=== PATIENT | female | born 1960 | race Caucasian/White ===

== ENCOUNTER 2019-10-18 23:22 | Emergency (ER) | payer OTHER, SELFPAY ==
[2019-10-18 23:33] VITALS: BP 133/95; PULSE 90; RESP 15; TEMP 36.9; O2SAT 98; BMI 22.1
--- NOTE | 2019-10-18 23:33 | ED.WOUNDLAC ---
HPI - Wound/Laceration General Chief Complaint: Wound/Laceration Stated Complaint: right forearm laceration Time Seen by Provider: 10/18/19 23:30 Source: patient Mode of arrival: Ambulatory Limitations: no limitations History of Present Illness HPI narrative: 59-year-old female here for evaluation of a cut to her right forearm. Patient's that occurred just prior to arrival. She was cleaning out some duct work she cut it on a piece of metal. She states that her last tetanus shot was in the past couple years. She did clean it out at home prior to arrival covered with a bandage. Review of Systems Constitutional Constitutional: Denies fever(s) Musculoskeletal Musculoskeletal: Denies tingling Integumentary/Breasts Comments: Cut to right forearm Neurologic Neurologic: Denies tingling and Denies paresthesias Hematologic/Lymphatic Hematologic/Lymphatic: Denies easy bleeding and Denies easy bruising Allergic/Immunologic Allergic/Immunologic: Denies urticaria Patient History Surgical History No pertinent past surgical history (Acute) Social History Smoking Status: Never smoker Exam Initial Vital Signs Initial Vital Signs: Vital Signs Temperature 98.4 F 10/18/19 23:33 Pulse Rate 90 10/18/19 23:33 Respiratory Rate 15 10/18/19 23:33 Blood Pressure 133/95 H 10/18/19 23:33 Pulse Oximetry 98 10/18/19 23:33 Const General: cooperative and comfortable Cardio Pulses: radial pulses present on the right Skin Other: Patient with a 5 cm laceration on the volar/ulnar aspect of the right forearm. No active bleeding. Neuro General: alert and awake Sensory Exam: no sensory deficits noted Extrem General: normal to inspection and capillary refill normal Psych Appearance: grossly normal and well kempt Procedures Laceration Repair Laceration 1: Site: upper extremity Side (If applicable): right Size (cm): 5 Description: linear Depth: simple, single layer Local Anesthetic: lidocaine 1% Amount of anesthesia used (mL): 4 Pre-repair: wound explored, irrigated extensively, deep structures intact and wound margins revised Skin layer closed with: nylon Size (cm): 4-0 Number of sutures: 6 Technique: simple, interrupted Course Orders Ordered: Discontinued Medications Bacitracin (Bacitracin) 1 applic TOP NOW ONE Stop: 10/19/19 00:05 Last Admin: 10/19/19 00:08 Dose: 1 applic Documented by: ELISEO Lidocaine HCl (Xylocaine 1% (Pf)) 4 ml INJ NOW ONE Stop: 10/18/19 23:34 Last Admin: 10/18/19 23:38 Dose: 4 ml Documented by: JATIN Vital Signs Vital signs: Vital Signs - 8 hr 10/18/19 23:33 Temperature 98.4 F Pulse Rate 90 Respiratory Rate 15 Blood Pressure 133/95 H Pulse Oximetry 98 MDM - Wound/Laceration MDM Narrative Medical decision making narrative: Neurovascularly intact. Closed as described above. No indication for antibiotics. Patient was given care instructions and return precautions. She expressed understanding and agreement with plan. Discharge Plan Departure Patient Disposition: Home Clinical Impression: Laceration Discharge Date/Time: 10/19/19 00:18 Instructions: DI for Laceration Repair Activity Restrictions/Additional Instructions: The stitches do need to be removed in 7-10 days. Tomorrow you can shower like normal. Just cover the stitches with a bandage like we discussed. Return to the emergency department for any new or worsening symptoms
[2019-10-18] MEDS: LIDOCAINE 1% (PF) 4 ML INJ (23:38)
[2019-10-19] MEDS: BACITRACIN OINT 0.9 GM PCKT 1 APPLIC TOP (00:08)
== END 2019-10-19 00:18 | disposition home or self-care (01) ==
PROVIDERS: Emergency Provider Emergency Medicine
DX: S51.811A Laceration without foreign body of right forearm, initial encounter (principal); W26.9XXA Contact with unspecified sharp object(s), initial encounter; Y93.E9 Activity, other interior property and clothing maintenance
CPT/HCPCS: 12002; 99283

== ENCOUNTER 2021-09-17 15:22 | Emergency (ER) | payer OTHER, SELFPAY ==
[2021-09-17 15:37] VITALS: BP 162/91; PULSE 103; RESP 17; TEMP 37.3; O2SAT 96; BMI 22.6
--- NOTE | 2021-09-17 15:46 | DI.RAD.S_ITS ---
PROCEDURE: XR KNEE RT 3V INDICATIONS: injury to right knee TECHNIQUE: 3 views of the knee were acquired. COMPARISON: None. FINDINGS: Bones: No fractures or dislocations. No suspicious bony lesions. Soft tissues: Mild joint effusion. No suspicious soft tissue calcifications. IMPRESSION: Mild effusion. No visualized acute fracture or dislocation. However, if clinical concern and/or pain persist, short interval imaging followup in 7-10 days is recommended, as occult injury cannot be definitively excluded. Dictated by: Venecia Birmingham M.D. on 09/17/2021 at 16:06 Approved by: Venecia Birmingham M.D. on 09/17/2021 at 16:06
--- NOTE | 2021-09-17 18:41 | ED.LOWEXIN ---
HPI - Extremity Injury (Lower) General Chief Complaint: Extremity Injury, Lower Stated Complaint: RT KNEE PAIN Time Seen by Provider: 09/17/21 18:36 Source: patient Mode of arrival: Wheelchair Limitations: no limitations History of Present Illness HPI Narrative: This is a 61-year-old female comes emergency department complaint of right knee pain. She states she had moved her knee laterally minute sort of hyper extended it. She states her kneecap seemed to pop off to the lateral side. It states duct there until she pushed it at moved back to the middle. She has had pain in her knee. She took ibuprofen which was helpful but is starting to wear off. She denies any numbness, tingling or weakness. She does have swelling. She has not had this happen before. She denies any other major injuries or issues today. She takes medication for ADHD and migraines. She denies any major surgeries. Her only allergy is latex. Related Data Home Medications Medication Instructions Recorded Confirmed dextroamphetamine-amphetamine 20 20 mg PO BID 09/17/21 09/17/21 mg tablet (Adderall) Allergies Allergy/AdvReac Type Severity Reaction Status Date / Time latex Allergy Verified 09/17/21 16:42 Review of Systems Review of Systems ROS Unobtainable: All systems reviewed & are unremarkable except as noted in HPI and below Patient History Surgical History No pertinent past surgical history Social History Smoking Status: Never smoker Smoking Status: Never smoker Substance Use Type: does not use Exam Narrative Exam Narrative: GENERAL: Alert and oriented x three, female in mild distress. HEENT: Head normocephalic, atraumatic, EOMI, pupils reactive, face symmetric, moist mucous membranes NECK: Supple, full range of motion CARDIOVASCULAR: Regular rate and rhythm without murmurs, rubs or gallops. RESPIRATORY: Breath sounds equal bilaterally, no wheezes rales or rhonchi. ABDOMEN: Soft, nontender. Normoactive bowel sounds all 4 quadrants. No guarding or rebound, rigidity, no mass EXTREMITIES: Normal range of motion, no clubbing. Patient does have some swelling of the right knee. She does not have any obvious laxity. Her patella is in place. She has 2+ dorsalis pedis. Normal sensation throughout. No obvious ecchymosis or skin changes. Neurovascularly intact. NEUROLOGICAL: Cranial nerves II through XII grossly intact. Moving all extremities SKIN: Warm, dry, no petechiae, no rashes or lesions. Initial Vital Signs Initial Vital Signs: Vital Signs Temperature 99.1 F 09/17/21 15:37 Pulse Rate 103 H 09/17/21 15:37 Respiratory Rate 17 09/17/21 15:37 Blood Pressure 162/91 H 09/17/21 15:37 Pulse Oximetry 96 09/17/21 15:37 Course Orders Ordered: ED Orders 09/17/21 15:46 XR knee RT 3V Stat Vital Signs Vital signs: Vital Signs - 8 hr 09/17/21 15:37 Temperature 99.1 F Pulse Rate 103 H Respiratory Rate 17 Blood Pressure 162/91 H Pulse Oximetry 96 MDM - Extremity Injury (Lower) Imaging Data Extremity x-ray #1: Radiologist's Impression: [address] [address] XRay Report Signed Patient: Dulce Lopez MR#: [id number] : 1960 Acct:[id number] Age/Sex: 61 / F Date of Service: 09/17/21 Loc: ED Accession Number: [id number] ?? Procedure: XR knee RT 3V Ordering Provider: Alaina Tapia D.O. PROCEDURE:? XR KNEE RT 3V ? INDICATIONS:? injury to right knee ? TECHNIQUE:? 3 views of the knee were acquired.? ? COMPARISON:? None. ? FINDINGS:? ? Bones:? No fractures or dislocations.? No suspicious bony lesions.? ? Soft tissues:? Mild joint effusion.? No suspicious soft tissue calcifications.? ? ? IMPRESSION:? Mild effusion.? No visualized acute fracture or dislocation. However, if clinical concern and/or pain persist, short interval imaging followup in 7-10 days is recommended, as occult injury cannot be definitively excluded. ? ? Dictated by: Venecia Birmingham M.D. on 09/17/2021 at 16:06 ? ? Approved by: Venecia Birmingham M.D. on 09/17/2021 at 16:06?? [facility] Narrative Medical decision making narrative: Patient likely had a patellar dislocation which relocated at home. Plan for joint mobilization. She has crutches with her. Weight-bearing as tolerated and follow-up with her physician. We discussed if she has recurrent episodes she would need follow-up with orthopedic surgery specifically. Patient plans to take some ibuprofen when she returns home she defers anything in the department. Discharge Plan Departure Patient Disposition: Home Clinical Impression: Effusion of knee Instructions: DI for Patellar Dislocation Activity Restrictions/Additional Instructions: Follow-up with your physician in the next week for recheck. Wear knee immobilizer for the next several days. You may remove it if your pain is resolved. Weightbear as tolerated. You may take ibuprofen up to 800 mg every 8 hours as needed for pain and/or Tylenol up to a 1000 mg every 8 hours as needed for pain. Splint Care: Keep splint clean and dry. Elevated affected body part to decrease swelling. OK to use ice pack on the affected body part. Use for 15-20 minutes each time, for 5-6x per day. If you develop worsening pain, numbness, tingling, discoloration of the affected body part, loosen the splint by loosening the BEKA wrap, and either see your doctor for an urgent re-assessment, or return to the Emergency Department. Return to the Emergency Department for any new or worsening symptoms. Prescriptions: No Action dextroamphetamine-amphetamine [Adderall] 20 mg Tablet 20 mg PO BID 0RF Rx Instructions: administer doses at least 4-6 hours apart
[2021-09-17 20:00] VITALS: BP 135/80; PULSE 68; RESP 20; O2SAT 99
== END 2021-09-17 18:55 | disposition home or self-care (01) ==
PROVIDERS: Emergency Provider Emergency Medicine
DX: M25.461 Effusion, right knee (principal)
CPT/HCPCS: 73562; 99282; 99283

== ENCOUNTER 2022-12-06 10:45 | Emergency (ER) | payer OTHER, SELFPAY ==
[2022-12-06 10:55] VITALS: BP 135/65; PULSE 63; RESP 18; TEMP 36.2; O2SAT 98; BMI 21.9
--- NOTE | 2022-12-06 11:39 | DI.RAD.S_ITS ---
PROCEDURE: XR CHEST 1V INDICATIONS: chest pain TECHNIQUE: One view of the chest was acquired. COMPARISON: None. FINDINGS: Surgical changes and devices: None. Lungs and pleura: On this semiupright portable chest examination, no large pneumothorax or large pleural effusions are seen. No focal infiltrates are seen. Mediastinum: The cardiac contours are within normal limits. The aorta demonstrates calcification and tortuosity. Bones and chest wall: Age-appropriate bony degenerative changes are seen. No suspicious bony lesions. Overlying soft tissues appear unremarkable. IMPRESSION: Portable chest within normal limits for age. Dictated by: Jorge Meehan M.D. on 12/06/2022 at 11:26 Approved by: Jorge Meehan M.D. on 12/06/2022 at 11:26
[2022-12-06 12:59] VITALS: BP 123/72; PULSE 66; O2SAT 97
--- NOTE | 2022-12-06 13:42 | ED.EYEPROB ---
HPI - Eye Problem General Chief complaint: Eye Problems Stated complaint: injured rt eye, sharp pain Time Seen by Provider: 12/06/22 12:39 Source: patient Mode of arrival: Ambulatory History of Present Illness HPI Narrative: Patient is a 62-year-old female without past medical history presenting today with ongoing right eye flashing lights and floaters. She says about 2 weeks ago she looked to the right she had instant pain afterward she had some floaters. That slowly got better however 3 days ago it happened again where she looked and had severe pain. She reports that at night she sees multiple flashing lights even when she closes her eyes. She has a lot of long floaters around her eye. She does not have any decreased vision she does not have a current closing. She reports that over the last 3 days it has actually gotten a little bit better. She does wear corrective glasses but no contacts. She has not had any trauma to the eye. Related Data Home Medications Medication Instructions Recorded Confirmed cyanocobalamin (vitamin B-12) 2,000 mcg PO DAILY 12/06/22 12/06/22 1,000 mcg tablet (Vitamin B-12) Allergies Allergy/AdvReac Type Severity Reaction Status Date / Time latex Allergy Verified 12/06/22 10:59 Review of Systems Review of Systems ROS Unobtainable: All systems reviewed & are unremarkable except as noted in HPI and below Patient History Surgical History No pertinent past surgical history Social History Smoking Status: Never smoker Smoking Status: Never smoker alcohol intake frequency: 0-2 drinks per day Substance Use Type: does not use Exam Initial Vital Signs Initial Vital Signs: Vital Signs Temperature 97.1 F L 12/06/22 10:55 Pulse Rate 63 12/06/22 10:55 Respiratory Rate 18 12/06/22 10:55 Blood Pressure 135/65 12/06/22 10:55 Pulse Oximetry 98 12/06/22 10:55 Oxygen Delivery Method 12/06/22 10:55 GENERAL: Alert pleasant well-appearing 62-year-old female HEENT: Head atraumatic,EOMI, pupils reactive, face symmetric, moist mucous membranes EYES: Extraocular muscles intact Right eye pressure 24 mmHg, stained with fluorescein with no dye uptake, no cerna red spots ultrasound back of right eye does not show any gross vitreous humor detachment or retinal detachment. left eye pressure 19mmHg CARDIOVASCULAR: Regular rate and rhythm without murmurs, rubs or gallops. RESPIRATORY: No respiratory distress speaks easily EXTREMITIES: Normal range of motion, no clubbing or edema. Neurovascularly intact NEUROLOGICAL: Alert and oriented x4.Normal gait and speech. SKIN: Warm, dry, no laceration, no petechiae, no rashes or lesions. Course Orders Ordered: ED Orders 12/06/22 11:39 XR chest 1V Stat Discontinued Medications Fluorescein Sodium (Fluorescein 1 Mg Strip) 1 mg EYE-BOTH NOW ONE Stop: 12/06/22 14:02 Last Admin: 12/06/22 14:05 Dose: 1 mg Documented By: MARIE Proparacaine HCl (Proparacaine 0.5% Ophth Cari) 1 drops EYE-BOTH NOW ONE Stop: 12/06/22 14:02 Last Admin: 12/06/22 14:05 Dose: 1 drop Documented By: MARIE Vital Signs Vital signs: Vital Signs - 8 hr 12/06/22 12:59 Pulse Rate 66 Blood Pressure 123/72 Pulse Oximetry 97 Oxygen Delivery Method Room Air MDM - Eye Problem MDM Narrative Medical decision making narrative: Patient 62-year-old female has had 2 episodes over last 2-3 weeks with right eye pain and then flashing lights and floaters. Last episode was 3 days ago symptoms are actually improving. No evidence of glaucoma. I do not see obvious retinal detachment on ultrasound. [facility] Strongly recommend that she follow-up with Ophthalmology and return as needed. Discharge Plan Departure Patient Disposition: Home Clinical Impression: Flashing light Instructions: DI for Eye Floaters Activity Restrictions/Additional Instructions: *You have been diagnosed with flashing lights floaters *What to do: At this time you do still need ophthalmology evaluation. Please call him 1st thing in the morning and say that you were in the ED today in that need to be seen. *Continue to take medications as directed *Follow up with your primary care provider in 2-3 days or call [phone] *Return to ER if you should have increasing pain more flashing lights worsening floaters [or] any new, worsening or concerning symptoms Prescriptions: No Action cyanocobalamin (vitamin B-12) [Vitamin B-12] 1,000 mcg Tablet 2,000 mcg PO DAILY Referrals: Pat Galeana MD [Physician] - Zeeshan Torres MD [Physician] - Stand Alone Forms: Patient Portal/API
[2022-12-06] MEDS: PROPARACAINE 0.5% OPHTH SOL 1 DROPS EYE-BOTH (14:05)
[2022-12-06] MEDS: FLUORESCEIN 1 MG STRIP EYE-BOTH (14:05)
== END 2022-12-06 14:30 | disposition home or self-care (01) ==
PROVIDERS: Emergency Provider Emergency Medicine
DX: H53.8 Other visual disturbances (principal); R07.9 Chest pain, unspecified
CPT/HCPCS: 71045; 99282; 99283

== ENCOUNTER → 2023-02-12 12:06 | Outpatient (CLI) | payer OTHER, SELFPAY ==
--- NOTE | 2023-02-12 12:37 | DI.DEXA.S_ITS ---
Bone Density Report Name: NICOLETTE BOLAND Age: 63 Sex: Female Ethnicity: White Date of : 1960 Indication: postmenopausal; screening for osteoporosis; prior fracture; Referring Provider: AREN OBANDO P.A-C Study: Bone densitometry was performed. Exam Date: February 12, 2023 Accession number: [id number] Bone Density: Region BMD T-score Z-score Classification AP Spine(L1-L4) 0.739 -2.8 -1.3 Osteoporosis Femoral Neck (Left) 0.516 -3.0 -1.7 Osteoporosis Total Hip (Left) 0.639 -2.5 -1.5 Osteoporosis Femoral Neck (Right) 0.521 -3.0 -1.6 Osteoporosis Total Hip (Right) 0.667 -2.3 -1.3 Osteopenia Total Hip Mean 0.653 -2.4 -1.4 Osteopenia World Health Organization criteria for BMD impression classify patients as: Normal (T-score at or above -1.0), Osteopenia (T-score between -1.0 and -2.5), or Osteoporosis (T-score at or below -2.5). 10-year Fracture Risk: FRAX not reported because: Some T-score for Spine Total or Hip Total or Femoral Neck at or below -2.5 Prior hip or vertebral fracture Impression: The patient has established osteoporosis, based on the Left Femoral Neck T-score and the existence of a prior fracture. The patient has risk factors, including: previous fracture. Discussion: HIGH RISK OF FRACTURE. BONE DENSITY IS UNDESIRABLY LOW AT ONE OR MORE SKELETAL SITES, CONSISTENT WITH POSTMENOPAUSAL OSTEOPOROSIS. This patient's lowest T-score, in a patient who has previously fractured, meets the World Health Organization's (WHO) criteria for severe osteoporosis. In untreated patients, the risk of osteoporotic fracture increases approximately two-fold for each 1.0 SD decrease in T-score. Low bone density is not the only risk factor for fracture; also consider factors such as patient's age, frailty or poor health, risk of falling, risk of injury, previous osteoporotic fracture, family history of osteoporosis, cigarette smoking, low body weight, etc. Not everyone with low bone mineral density has osteoporosis; osteomalacia and other metabolic bone disorders should also be considered. Patients who have osteoporosis should be evaluated for specific diseases and conditions (secondary causes) that may cause or contribute to bone loss. The [place] [employer]ocr[employer] (AACE) and National Osteoporosis Foundation (NOF) recommend pharmacologic intervention for all postmenopausal women with a previous hip or vertebral fracture and a T-score in this range. The patient should follow a healthful lifestyle (good nutrition with adequate calcium and vitamin D, and appropriate weight-bearing exercise). Follow-Up: Consider a repeat BMD and Vertebral Fracture Assessment (VFA) exam in 2 years or sooner if medically necessary, to reassess this patient's status. Reported by: SOCORRO NAVA MD on 02/12/2023 12:42:00 PM.
== END ==
PROVIDERS: Referring Provider Physician Assistant; Visit Provider Physician Assistant
DX: Z13.820 Encounter for screening for osteoporosis (principal); Z78.0 Asymptomatic menopausal state; M81.0 Age-related osteoporosis without current pathological fracture
CPT/HCPCS: 77080